=== PATIENT | female | born 1985 | race Two or more races ===

== ENCOUNTER → 2020-07-13 | Outpatient (CLI) | payer BC ==
[2020-07-13 13:04] LABS: Basophils # (auto) 0.1 10 ^3/uL (0-0.2); Basophils % (auto) 0.6 % (0.0-2.0); Eosinophils # (auto) 0.2 10 ^3/uL (0-0.8); Eosinophils % (auto) 1.8 % (0.0-7.0); Hematocrit 42.7 % (36.0-46.0); Hemoglobin 14.7 g/dL (12.2-16.2); Lymphocytes # (auto) 2.5 10 ^3/uL (0.4-5.4); Lymphocytes % (auto) 30.7 % (10.0-50.0); Mean Corpuscular Hemoglobin 32.4 pg (28.0-32.0); Mean Corpuscular Hgb Conc. 34.5 g/dL (32.0-36.0); Monocytes # (auto) 0.7 10 ^3/uL (0-1.3); Monocytes % (auto) 8.5 % (0.0-12.0); Neutrophils # (auto) 4.8 10 ^3/uL (1.6-8.6); Neutrophils % (auto) 58.4 % (37.0-80.0); Platelet Count (auto) 138 10^3/uL (140-450); Red Blood Cells 4.54 10^6/uL (4.0-5.20); Red Cell Distribution Width 13.1 % (11.8-14.3); White Blood Cell 8.2 10^3/uL (4.4-10.8)
[2020-07-13 13:44] LABS: Calcium 9.3 mg/dL (8.5-10.1); Potassium 3.9 mmol/L (3.5-5.1)
[2020-07-13 13:49] LABS: BUN/Creatinine Ratio 20.5; Total Protein 7.8 g/dL (6.4-8.2)
== END | disposition home or self-care (01) ==
LOC: LAB 12:41
PROVIDERS: ATTEND Physician Assistant
DX: D69.6 Thrombocytopenia, unspecified (principal); E66.9 Obesity, unspecified; F41.9 Anxiety disorder, unspecified; Z68.30 Body mass index [BMI] 30.0-30.9, adult
CPT/HCPCS: 36415; 80053; 80061; 85025

== ENCOUNTER → 2023-11-02 | Outpatient (CLI) | payer BC ==
[2023-11-03 08:06] LABS: Mumps IgG Antibody 50.6 AU/mL (Immune >10.9)
== END | disposition home or self-care (01) ==
LOC: LAB 12:38
PROVIDERS: ATTEND Nurse Practitioner Family
DX: Z02.0 Encounter for examination for admission to educational institution (principal)
CPT/HCPCS: 36415; 86706; 86735; 86762; 86765; 86787

== ENCOUNTER 2024-03-25 04:44 | Emergency (ER) | payer BC, OTHER ==
[~2024-03-25] VITALS: Ht 162.6 cm; Wt 82.0 kg
[2024-03-25] MEDS: IBUPROFEN 800 MG TAB PO ONE (06:00)
[2024-03-25 06:08] VITALS: BP 137/93; PULSE 75; RESP 18; TEMP 97.3; O2SAT 98
--- NOTE | 2024-03-25 06:30 | DVH ---
PROCEDURE: Right knee radiographs. INDICATION: fall/pain TECHNIQUE: 3 views of the right knee were obtained. COMPARISON: None FINDINGS: There is no evidence of fracture or dislocation. Joint spaces are maintained. The soft tis sues are unremarkable. IMPRESSION: 1. No fracture or dislocation.
--- NOTE | 2024-03-25 06:31 | DVH ---
XY R HAND 3 VIEW XRAY INDICATION: fall little finger pain TECHNICAL DATA: Frontal, oblique and lateral views were obtained of the right hand. COMPARISON: None FINDINGS: No fracture is identified. Joint spaces are maintained. Alignment is anatomic. Soft tissues are withi n normal limits. IMPRESSION: 1. No acute fracture or dislocation of the right hand.
[2024-03-25] MEDS ORDERED: IBUP-1456 PO (06:46)
--- NOTE | 2024-03-25 06:49 | ED.PDOC ---
Musculoskeletal HPI Comments A 38-YEAR-OLD FEMALE WITH NO PMHX PRESENTS WITH A CHIEF COMPLAINT OF RIGHT HAND AND RIGHT KNEE PAIN S/P MECHANICAL FALL. PATIENT STATES THAT SHE WAS OUTSIDE AND STEPPED ONTO A STONE THAT WAS LOOSE AND HAD A MECHANICAL FALL. PATIENT STATES THAT SHE HELD OUT HER RIGHT HAND TO BRACE HERSELF AND INJURED HER FIFTH FINGER ON HER RIGHT HAND. PATIENT HAS NO DEFORMITIES TO EITHER HER HAND OR KNEE. PATIENT IS ABLE TO BEAR WEIGHT ON HER KNEE. PATIENT DENIES ANY FEVER, HEADACHE, SOB, ABDOMINAL PAIN, CHEST PAIN, OR COUGH. NO OTHER SYMPTOMS OR MODIFYING FACTORS PRESENT AT THIS TIME. Chief Complaint: Fall Injury Time Seen by MD: 06:42 Reviewed Notes: Medications, Allergies Home Meds Active Scripts Ibuprofen (Ibuprofen) 800 Mg Tab, 1 TAB PO TID, #30 TAB Prov:NIKKI KINGSLEY 03/25/24 Information Source: Patient Mode of Arrival: Ambulatory Brought in by: AMBULATORY Location: Right Extremity Location: Hand (RIGHT FIFTH FINGER), Knee (RIGHT ) Timing: Minutes Prehospital treatment: None Severity: Moderate Able to Move Extremity: Yes Bear Weight: Limited Pain: Moderate Hand Dominance: Right Mechanism: Blunt Trauma Circumstances: Fall Onset of Symptoms: After Trauma Symptoms: Pain DVT Risk Factors: NONE Last Tetanus: Unknown Associated signs and symptoms: Knee pain, Hand pain Past Medical History PAST MEDICAL HISTORY: Denies Surgical History: Denies all surgeries RECREATION FACILITY ATTENDANT History: Denies all RECREATION FACILITY ATTENDANT Hx Family History Family History: Reviewed,noncontributory to illness Social History Smoker: Non-Smoker Alcohol: Denies ETOH Use Drugs: Denies Drug Use Lives In: Home Constitutional: denies: chills, diaphoresis, fatigue, fever, malaise, sweats, weakness, others EENTM: denies: blurred vision, double vision, ear bleeding, ear discharge, ear drainage, ear pain, ear ringing, eye pain, eye redness, hearing loss, mouth pain, mouth swelling, nasal discharge, nose bleeding, nose congestion, nose pain, photophobia, tearing, throat pain, throat swelling, voice changes, others Respiratory: denies: cough, hemoptysis, orthopnea, SOB at rest, shortness of breath, SOB with excertion, stridor, wheezing, others Cardiovascular: denies: chest pain, dizzy spells, diaphoresis, Dyspnea on exertion, edema, irregular heart beat, left arm pain, lightheadedness, palpitations, PND, syncope, others Gastrointestinal: denies: abdomen distended, abdominal pain, blood streaked bowels, constipated, diarrhea, dysphagia, difficulty swallowing, hematemesis, melena, nausea, poor appetite, poor fluid intake, rectal bleeding, rectal pain, vomiting, others Genitourinary: denies: abnormal vagina bleeding, burning, dyspareunia, dysuria, flank pain, frequency, hematuria, incontinence, pain, , vagina discharge, urgency, others Neurological: denies: dizziness, fainting, headache, left sided numbness, left sided weakness, numbness, paresthesia, pre-existing deficit, right sided numbness, right sided weakness, seizure, speech problems, tingling, tremors, weakness, others Musculoskeletal: reports: joint pain, muscle pain (RIGHT HAND AND RIGHT KNEE); denies: back pain, gout, joint swelling, muscle stiffness, neck pain, others Integumetry: denies: bruises, change in color, change in hair/nails, dryness, laceration, lesions, lumps, rash, wounds, others Allergic/Immunocompromised: denies: Difficulty Healing, Frequent Infections, Hives, Itching, others Hematologic/Lymphatic: denies: anemia, blood clots, easy bleeding, easy bruising, swollen glands, others Endocrine: denies: excessive hunger, excessive sweating, excessive thirst, excessive urination, flushing, intolerance to cold, intolerance to heat, unexplained weight gain, unexplained weight loss, others Psychiatric: denies: anxiety, bipolar disorder, depression, hopeless, panic disorder, schizophrenia, sleepless, suicidal, others All Other Systems: Reviewed and Negative Physical Exam General Appearance: No Apparent Distress, Normal HEENT: Normal ENT Inspection, PERRL/EOMI, Pharynx Normal, TMs Normal Neck: Full Range of Motion, Non-Tender, Normal, Normal Inspection Respiratory: Chest Non-Tender, Lungs Clear, No Accessory Muscle Use, No Respiratory Distress, Normal Breath Sounds Cardiovascular: No Edema, No JVD, No Murmur, No Gallop, Normal Peripheral Pulses, Regular Rate/Rhythm Breast Exam: Deferred Gastrointestinal: No Organomegaly, Non Tender, No Pulsatile Mass, Normal Bowel Sounds, Soft Genitalia: Deferred Pelvic: Deferred Rectal: Deferred Extremities: No calf tenderness, Normal capillary refill, Normal range of motion, No pedal edema, Tender (AND MILD SWELLING ON RIGHT 5TH FINGER, NO BONY TENDERNESS AND DEFORMITY. NORMAL ROM. ), Other (TENDERNESS AND CONTUSION ON RIGHT ANTERIOR KNEE, NO BONY TENDERNESS, SWELLING AND DEFORMITY. ) Musculoskeletal : Apperance: Normal Neurologic: Alert, senior training specialist II-XII nml as Tested, No Motor Deficits, Normal Affect, Normal Mood, No Sensory Deficits Cerebellar Function: Normal Reflexes: Normal Skin: Bruises (RIGHT ANTERIOR KNEE WITH CONTUSION, NO BONY TENDERNESS AND DEFORMITY. ), Dry, Normal Color, Warm Peripheral Pulses: 2+ carotid (R), 2+ carotid (L), 2+ Radial (R), 2+ Radial (L) Lymphatic: No Adenopathy Was a procedure done? Was a procedure done?: No Differential Diagnosis EXT Differential Diagnosis: Fracture, Sprain, Contusion, Strain, Bursitis X-Ray, Labs, Meds, VS Vital Signs Date Time Temp Pulse Resp B/P (MAP) Pulse Ox O2 Delivery O2 Flow Rate FiO2 03/25/24 06:08 75 18 98 Room Air 03/25/24 06:08 97.3 75 18 137/93 (108) 98 97.3 03/25/24 04:45 97.3 75 18 137/93 (108) 98 Current Medications Medications (Trade) Dose Ordered Sig/Yuli Route Start Time Stop Time Status Last Admin Ibuprofen (Motrin Tablet) 800 mg ONCE ONCE PO 03/25/24 05:15 03/25/24 05:16 DC 03/25/24 06:00 1. No acute fracture or dislocation of the right hand. 1. No fracture or dislocation of the right knee. X-Ray, Labs, Meds, VS Comment IMAGING: NO FRACTURES OR DISLOCATIONS TO EITHER HER RIGHT HAND OR RIGHT KNEE, PER RADIOLOGIST READING. Time of 1ST Reevaluation: 07:08 Reevaluation 1ST: Improved Patient Education/Counseling: Diagnosis, Treatment, Need For Follow Up Family Education/Counseling: Diagnosis, Treatment, No Family Present Medical Screening: No EMC Exist At This Time Departure 1 Departure Time of Disposition: 07:08 Impression: Primary Impression: Contusion of right knee Qualified Codes: S80.01XA - Contusion of right knee, initial encounter Additional Impression: Sprain of finger of right hand Qualified Codes: S63.636A - Sprain of interphalangeal joint of right little finger, initial encounter Disposition: HOME / SELF CARE / HOMELESS Condition: Stable Additional Instructions: FOLLOW UP WITH [facility] IN 2 DAYS. RETURN TO THE ER IF YOUR SYMPTOMS WORSEN. e-Prescriptions Ibuprofen (Ibuprofen) 800 Mg Tab 1 TAB PO TID, #30 TAB Prov: NIKKI KINGSLEY 03/25/24 Discharged With: Self Critical Care Note Critical Care Time?: No Stability Stability form required: No Heart Score Heart Score: Heart Score Response (Comments) Value History N/A 0 EKG N/A 0 Age N/A 0 Risk Factors N/A 0 Troponin N/A 0 Total 0 I personally scribed for NIKKI KINGSLEY ([email or web address]) on 03/25/24 at 06:49. Electronically submitted by Danie Chavez ([email or web address]). I personally scribed for NIKKI KINGSLEY ([email or web address]) on 03/25/24 at 06:50. Electronically submitted by Danie Chavez ([email or web address]). NIKKI KINGSLEY Mar 25, 2024 06:49 WALLACE SAUCEDO MD Mar 25, 2024 17:31
== END 2024-03-25 07:03 | disposition home or self-care (01) ==
LOC: ER 04:44
DX: S63.636A Sprain of interphalangeal joint of right little finger, initial encounter (principal); S80.01XA Contusion of right knee, initial encounter; Z79.1 Long term (current) use of non-steroidal anti-inflammatories (NSAID); W18.39XA Other fall on same level, initial encounter; Y93.89 Activity, other specified; Y92.89 Other specified places as the place of occurrence of the external cause; Y99.8 Other external cause status
CPT/HCPCS: 73130; 73562